=== PATIENT | male | born 1970 | race Caucasian/White ===

== ENCOUNTER → 2016-08-28 | Emergency (ER) | payer SELFPAY ==
[~2016-08-28] VITALS: Ht 172.7 cm; Wt 72.6 kg
--- NOTE | 2016-08-28 21:27 | Emergency Room Report ---
History of Present Illness General Chief Complaint: Alcohol Intoxication Source: EMS Present Illness HPI 46 YO Male presents to the ED brought in by ambulance for alcohol intoxication, pt. is NAD, pt. is arousable, no obvious signs of trauma, able to ambulate onto gurney. HPI and ROS is limited due to pt. having poor cooperation, and ETOH intoxication. Allergies: Coded Allergies: UNABLE TO ASSESS (Unverified , 08/28/16) Patient History Limited by: other - poor pt. cooperation, obvious intoxication Past Medical History: see triage record Past Surgical History: none Pertinent Family History: none Reviewed Nursing Documentation: PMH: Agreed Nursing Documentation-PMH Past Medical History: Deferred Review of Systems All Other Systems: limited - limited secondary to poor cooperation and AMS secondary to intoxication. Physical Exam Vital Signs Date Time Temp Pulse Resp B/P Pulse Ox O2 Delivery O2 Flow Rate FiO2 08/28/16 19:15 97.9 95 18 125/81 99 Room Air Sp02 EP Interpretation: reviewed, normal General Appearance: no apparent distress, alert, GCS 15, non-toxic, thin Head: normocephalic, atraumatic, other - healed/scarred left temporal abrasion Eyes: bilateral eye PERRL, bilateral eye normal inspection ENT: hearing grossly normal, normal pharynx, no angioedema, normal voice, TMs + canals normal, uvula midline, other - no evidence of hemotympanum or csf leak Neck: full range of motion, no bony tend, supple/symm/no masses Respiratory: chest non-tender, lungs clear, normal breath sounds, no wheezing Cardiovascular #1: regular rate, rhythm, no edema, normal capillary refill Cardiovascular #2: 2+ radial (R), 2+ radial (L) Gastrointestinal: normal bowel sounds, non tender, soft, no guarding, no rebound, other - no bruises or evidence of abdominal trauma, no caput medusa or palpable liver Rectal: deferred Genitourinary: normal inspection, no CVA tenderness Musculoskeletal: back normal, normal range of motion, non-tender, no calf tenderness Neurologic: alert, oriented x3, responsive, motor strength/tone normal, sensory intact, other - pt has slurred speech with strong obvious alcohol odor on breath Psychiatric: other - unable to assess Skin: normal color, no rash, warm/dry, well hydrated Lymphatic: no adenopathy Medical Decision Making PA Attestation Dr. Foreman is my supervising Physician whom patient management has been discussed with. Diagnostic Impression: Primary Impression: Acute alcoholic intoxication Qualified Codes: F10.120 - Alcohol abuse with intoxication, uncomplicated ER Course Pt. presents to the ED intoxicated with alcohol, pt. is NAD, pt. is arousable, no obvious signs of trauma, able to ambulate onto gurney Ddx considered but are not limited to ETOH, Trauma, Syncope, dementia, OD Vital signs: are WNL, pt. is afebrile H&PE are most consistent with ETOH intoxication. ORDERS: none required at this time ED INTERVENTIONS: Observance while he detoxifies. Pt. was allowed to sleep/rest. Last Vital Signs Date Time Temp Pulse Resp B/P Pulse Ox O2 Delivery O2 Flow Rate FiO2 08/28/16 19:15 97.9 95 18 125/81 99 Room Air Signed Out To: Dr. Sykes Referrals: NOT CHOSEN IPA/,REFERRING (PCP) Rabia Casiano Aug 28, 2016 21:27
[2016-08-28 23:15] VITALS: BP 125/81
[2016-08-29 00:10] VITALS: BP 129/84
[2016-08-29 00:20] VITALS: BP 129/84
== END | disposition home or self-care (01) ==
LOC: EDBD 19:20 → EMR 20:01
DX: F10.120 Alcohol abuse with intoxication, uncomplicated (principal)
CPT/HCPCS: 99284